=== PATIENT | male | born 1995 | race Caucasian/White ===

== ENCOUNTER 2017-11-07 13:22 | Emergency (ER) | payer SELFPAY ==
--- NOTE | 2017-11-07 15:52 | EDM.PDOC ---
ED HPI GENERAL MEDICAL PROBLEM - General Chief Complaint: Skin Complaint Stated Complaint: RASHES/POSS. INFECTION Time Seen by Provider: 11/07/17 15:16 Source of Information: Reports: Patient History Limitations: Reports: No Limitations - History of Present Illness INITIAL COMMENTS - FREE TEXT/NARRATIVE: 22-year-old male presents for evaluation and treatment of a rash to the right underarm, right groin and bilateral buttocks. He has had the rash to the groin and bilateral buttocks before. He states he gets these frequently. Previously has been prescribed a cream which helps this resolved. The area to the right underarm is new. Reports presented over the the last few days. Reports associated symptoms of nausea. He states that the area is very painful. No fevers, chills or any pruritus. He has not tried anything [id number] prior to arrival in the ER. Patient has a history of hypogammaglobinemia. He was seeing an sole layer in [place] but has not yet established with an sole layer here [place]. No primary care provider. Patient moved to [place] about 2-3 weeks ago from [place]. - Related Data Allergies Allergy/AdvReac Type Severity Reaction Status Date / Time diphenhydramine Allergy Agitation Verified 11/07/17 15:02 [From Benadryl] Home Meds: Home Meds Acetaminophen [Tylenol] 2 tab PO TID PRN 11/07/17 [History] Fluconazole [Diflucan] 150 mg PO WEEKLY #4 tab 11/07/17 [Rx] traMADol [Ultram] 50 mg PO Q6H PRN #10 tab 11/07/17 [Rx] Past Medical History HEENT History: Reports: Otitis Media Respiratory History: Reports: Asthma Musculoskeletal History: Reports: Fracture Other Musculoskeletal History: Lower vertebrae and L leg Immunologic History: Reports: Other (See Below) Other Immunologic History: Hypogammaglobinemia Dermatologic History: Reports: Eczema - Past Surgical History HEENT Surgical History: Reports: Tonsillectomy, Other (See Below) Other HEENT Surgeries/Procedures: Ear surgery Social & Family History - Tobacco Use Smoking Status *Q: Current Every Day Smoker Years of Tobacco use: 6 Packs/Tins Daily: 2 Used Tobacco, but Quit: No Second Hand Smoke Exposure: Yes - Caffeine Use Caffeine Use: Reports: Coffee, Energy Drinks, Tea - Alcohol Use Days Per Week of Alcohol Use: 5 Number of Drinks Per Day: 6 Total Drinks Per Week: 30 - Recreational Drug Use Recreational Drug Use: No ED ROS GENERAL - Review of Systems Review Of Systems: See Below Constitutional: Denies: Fever, Chills GI/Abdominal: Reports: Nausea. Denies: Vomiting Skin: Reports: Rash (right underarm, bilateral buttocks, right groin). Denies: Pruritis ED EXAM, SKIN/RASH Exam: See Below Exam Limited By: No Limitations General Appearance: Alert, WD/WN, No Apparent Distress Respiratory/Chest: No Respiratory Distress, Lungs Clear, Normal Breath Sounds Cardiovascular: Normal Peripheral Pulses, Regular Rate, Rhythm, No Murmur Neurological: Alert, Oriented, Normal Cognition Psychiatric: Normal Affect, Normal Mood Skin: Warm, Dry, Rash (erythematous, blanching rash with satellite lesions to the right axilla, right groin and superior bilateral buttocks; no blistering or ecchymosis noted) Location, Skin: Axillary (right), Groin (right), Other (right superior butticks) Characteristics: Macular Associated features: Tenderness, Swelling (minor). No: Crusting, Weeping Course - Vital Signs Last Recorded V/S: Last Vital Signs Temp 98.1 F 11/07/17 15:13 Pulse 86 11/07/17 15:13 Resp 20 11/07/17 15:13 BP 134/94 H 11/07/17 15:13 Pulse Ox 100 11/07/17 15:13 Departure - Departure Time of Disposition: 15:30 Disposition: Home, Self-Care 01 Condition: Good Clinical Impression: Tinea - Discharge Information *PRESCRIPTION DRUG MONITORING PROGRAM REVIEWED*: Yes *COPY OF PRESCRIPTION DRUG MONITORING REPORT IN PATIENT KENIA: No Prescriptions: Fluconazole [Diflucan] 150 mg PO WEEKLY #4 tab traMADol [Ultram] 50 mg PO Q6H PRN #10 tab PRN Reason: Pain Referrals: PCP,None [Primary Care Provider] - Shahnaz Boykin PA [Physician Community Representative] - Forms: ED Department Discharge Additional Instructions: Diflucan 1 tab once weekly for 4 weeks. [id number] Tylenol or Motrin seen for pain relief. For pain not relieved by Tylenol or Motrin you may take tramadol 1 tab every [address] machinery until you know how tramadol will affect you. Tramadol can be habit-forming, take as little as needed to control your pain. Follow-up with family medicine in 2-4 weeks for recheck of your symptoms. Recommend Shahnaz Boykin at the [facility]. Call [phone] to schedule with your there. follow-up with immunology for your chronic immune condition. Recommend Dr. Bryant in [place]. Call [phone] to schedule with him. If you need help with the referral asked her primary care provider. Physicians the ER if your symptoms change or worsen.
== END 2017-11-07 16:04 | disposition home or self-care (01) ==
LOC: JD.ED 13:22
DX: B35.9 Dermatophytosis, unspecified (principal); F17.210 Nicotine dependence, cigarettes, uncomplicated
CPT/HCPCS: 99283